=== PATIENT | male | born 1970 | race Caucasian/White ===

== ENCOUNTER → 2021-03-31 15:05 | Outpatient (REF) | payer OTHER, SELFPAY | LOC: HO.SL 15:05 | PROVIDERS: PCP Internal Medicine; Visit Provider Internal Medicine | DX: Z13.89 Encounter for screening for other disorder (principal) ==

== ENCOUNTER 2022-12-23 14:59 | Outpatient (AMB) | payer OTHER, SELFPAY ==
--- NOTE | 2022-12-23 15:04 | A.OFFVIS_ITS ---
Intake Vital Signs 12/23/22 15:05 Height 6 ft Weight 186 lb 1.122 oz BMI 25.2 BP 108/70 Blood Pressure Location Rt brachial Position Sitting Pulse 68 Pulse Source Pulse Oximeter Temp 97.5 F Temp Source Skin Pulse Oximetry (%) 96 Intake Visit Reasons: FM Intake Note: New pt presents today for FM consult. C/o generalized pain. 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 Patient states that he has had fibromyalgia of for many years. Manifestations include low back pain, bilateral thigh pain muscle pain, fatigue, insomnia. He saw 2 different rheumatologists in the past. Patient was tried on different medications for fibromyalgia. Duloxetine caused side effects. Gabapentin initially helped with symptoms of thigh pain, he was switched to Lyrica which was also Achilles partially effective. It is currently on Lyrica 75 mg t.i.d. Patient also has had low back pain for years. Was found to have herniated disc. He received an epidural steroid injection 10 years ago which provided some relief. He was evaluated by Pain Management in the past few years and a steroid injection was offered, patient was not interested. Recently patient was complaining of shortness of breath with going up a few stairs. He was evaluated by Pulmonary, chest x-ray, 2D echo and PFTs were negative. He took testosterone for about a year and have and initially it was helpful for some time then stopped helping. He is no longer on testosterone due to a change in insurance. Patient states that he takes tramadol 3 times a day which provides some relief. Patient has difficulty falling and staying asleep. He had a couple of sleep studies. One study showed possible mild sleep apnea, the follwing study was inconclusive. He is unaware of any family history of autoimmune rheumatic disease. Patient states that he cannot do weightlifting at the gym due to pain. He uses an exercise bike. 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 He works 2 weekends a month. [facility] Medical History Graves disease IBS (irritable bowel syndrome) Hyperlipidemia Low testosterone level in male Annual physical exam Sleep apnea Hypothyroid Lumbar radiculopathy Fibromyalgia Surgical History No pertinent past surgical history Family History Father Hypertension Diabetes Dementia Mother Diabetes Hypertension Social History Household Members: Spouse and Children Housing: House Alcohol intake: current Alcohol intake frequency: holidays/special occasions only Patient Tobacco Use Status: Never used Tobacco e-Cigarette/Vaping Use: Never Used Second Hand Smoke Exposure: No Current occupational status: employed 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 Cognitive needs: No Hearing needs: No Vision needs: Yes Review of Systems Const Reports fatigue and Reports weakness Card Reports dyspnea on exertion Resp Reports dyspnea on exertion Musc Reports back pain, Reports myalgias, Reports arthralgias and Reports radiating pain into limb Neuro Reports weakness Psych Reports abnormal sleep pattern, Reports anxiety and Reports depression Endo Reports fatigue Physical Exam Vital Signs: Last Vital Signs Temp 97.5 F 12/23/22 15:05 Pulse 68 12/23/22 15:05 BP 108/70 12/23/22 15:05 Pulse Ox 96 12/23/22 15:05 BMI result Body Mass Index 25.2 Const General: cooperative, healthy appearing and comfortable Nutritional Appearance: average body habitus Orientation/consciousness: patient oriented x3 Limitations: no limitations HEENT Head: Yes normocephalic and Yes atraumatic Mouth: moist mucous membranes Resp Effort & Inspection: normal respiratory effort and able to speak in complete sentences Skin General skin exam: no rashes or lesions noted Neuro General: patient oriented x3 Extrem Other: No active synovitis Normal nailfold capillaroscopy Few fibromyalgia tender points Results Reviewed Results Reviewed: Labs from 2015 Showed negative GREGORY/SSA/SSB/transglutaminase/HLA B27 Assessment & Plan Assessment & Plan (1) Fibromyalgia: Code(s): M79.7 - Fibromyalgia Plan: This is a 52-year-old male with past medical history of fibromyalgia who presents for consultation. I do not see any signs of autoimmune rheumatic disease upon my evaluation Discussed management of fibromyalgia with patient. Is a noninflammatory, non- autoimmune central afferent processing disorder leading to a diffuse pain syndrome. I suggested that patient try to address his underlying psychiatric issues, anxiety/depression. I suggested evaluation by a psychotherapist and/or a psychiatrist. Try to follow sleep hygiene practices. Discuss CBT for sleep with psychotherapist. Patient would benefit from increased physical activity, either through formal physical therapy or by joining a gym. Advised patient that he should start activity slowly and increase as tolerated. Consider low-impact exercises such as walking, swimming, aqua therapy stretching. Follow-up as needed (2) Lumbar radiculopathy: Code(s): M54.16 - Radiculopathy, lumbar region Plan: History of herniated disc more than 10 years ago. Consider re-evaluation by Pain Management and/or a spine surgeon Plan I spent 46 minutes reviewing patient's chart, evaluating patient, counseling p atient and documenting in the chart Coding Level of Care Code New Pt Level 4 (59220) Diagnoses Fibromyalgia M79.7 Lumbar radiculopathy M54.16
[2022-12-23 15:05] VITALS: BP 108/70; PULSE 68; TEMP 36.4; O2SAT 96; BMI 25.2
== END 2022-12-23 15:46 | disposition home or self-care (01) ==
PROVIDERS: PCP Internal Medicine; Visit Provider Student in an Organized Health Care Education/Training Program
DX: M79.7 Fibromyalgia (principal); M54.16 Radiculopathy, lumbar region
CPT/HCPCS: 99204

== ENCOUNTER → 2022-12-23 14:59 | Outpatient (BNVA) | payer OTHER, SELFPAY | PROVIDERS: PCP Internal Medicine; Visit Provider Student in an Organized Health Care Education/Training Program ==

== ENCOUNTER 2023-01-02 14:10 | Outpatient (AMB) | payer OTHER, SELFPAY ==
[2023-01-02 14:11] VITALS: BP 110/70; PULSE 65; O2SAT 98; BMI 25.1
--- NOTE | 2023-01-02 14:11 | A.OFFPC_ITS ---
Vital Signs 01/02/23 14:11 Height 6 ft Weight 185 lb BMI 25.1 BP 110/70 Blood Pressure Location Lt brachial Position Sitting Pulse 65 Pulse Source Pulse Oximeter Pulse Oximetry (%) 98 Oxygen Delivery Method Room Air Intake Visit Reasons: 6 Month follow up Intake Note: Pt is here today for 6 month Allergies duloxetine [Cymbalta] Adverse Reaction (Unknown, Verified 12/23/22 15:06) drowsiness Medication List - Last Reconciled 01/02/23 by Alexandria Larsen MD fluticasone propionate 110 mcg/actuation (Flovent HFA) 2 puffs inhalation BID levothyroxine 150 mcg PO DAILY meloxicam 15 mg PO DAILY omeprazole 20 mg PO DAILY pregabalin (Lyrica) 75 mg PO Q8H tramadol 50 mg PO Q8H Tobacco use date assessed: 01/02/23 Dental Screening Dental Screen Date: 01/02/23 Did you have a dental visit in the last 12 months?: Yes Did you have a dental problem in the last 6 months where you did not have access to dental care?: No Was dental information given to patient?: Patient has dentist HPI 6 Month follow up HPI Details Pt presents for f/u he complains of persistent fatigue, low energy, diffuse body aches and unrestful sleep. Patient was seen body rheumatology for fibromyalgia and was advised to increase Lyrica to 150 twice a day. Patient's insurance did not cover testosterone gel but he would like to appeal the decision. [facility] Medical History Graves disease IBS (irritable bowel syndrome) Hyperlipidemia Low testosterone level in male Annual physical exam Sleep apnea Hypothyroid Lumbar radiculopathy Fibromyalgia Surgical History No pertinent past surgical history Family History Father Hypertension Diabetes Dementia Mother Diabetes Hypertension Social History Household Members: Spouse and Children Housing: House Alcohol intake: current Alcohol intake frequency: holidays/special occasions only Patient Tobacco Use Status: Never used Tobacco e-Cigarette/Vaping Use: Never Used Second Hand Smoke Exposure: No Current occupational status: employed 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 How often do you have a drink containing alcohol?: Never 3. How often do you have six or more drinks on one occasion?: Never Total Score: 0 KATHARINA-7 AMB Questionnaire KATHARINA-7 Date KATHARINA - 7 assessed: 07/05/22 Source: Developed by Drs. Alejo Harrington, Radha Long, Janusz Reid and colleagues, with an educational jessica from [employer]. Review of Systems Const All systems reviewed & are unremarkable except as noted in HPI and below Reports no additional complaints Eyes Reports no additional complaints ENT Reports no additional complaints Card Reports no additional complaints Resp Reports no additional complaints Reports no additional complaints Physical exam (Primary Care) Vital Signs: Last Vital Signs Pulse 65 01/02/23 14:11 BP 110/70 01/02/23 14:11 Pulse Ox 98 01/02/23 14:11 Oxygen Delivery Method Room Air 01/02/23 14:11 BMI result Body Mass Index 25.1 Tobacco/Smoking Status: Tobacco use Status Tobacco use date assessed 01/02/23 01/02/23 14:15 Patient Tobacco Use Status Never used Tobacco 01/02/23 14:15 e-Cigarette/Vaping Use Never Used 01/02/23 14:15 Thrive Assessment: Date of Thrive Assessment Date Thrive assessed 07/05/22 01/02/23 14:15 Const General: no acute distress HENMT Face and sinus: Yes normal facial exam Throat: Yes posterior oropharynx normal Neck Neck: Yes supple Resp Effort & Inspection: normal respiratory effort Auscultation: clear to auscultation bilaterally Cardio Rhythm: regular rhythm Heart sounds: S1 normal heart sound present and S2 normal heart sound present GI Inspection: Yes normal to inspection Palpation (GI): Soft to palpation Percussion: Yes normal to percussion Assessment and Plan Assessment & Plan (1) Iron deficiency: Comment: Patient could not tolerate oral iron replacement, constipation Code(s): E61.1 - Iron deficiency Plan: Check iron count (2) Hyperlipidemia: Code(s): E78.5 - Hyperlipidemia, unspecified Plan: Continue low-cholesterol diet (3) Fibromyalgia: Code(s): M79.7 - Fibromyalgia Plan: Patient will try high dose of Lyrica and continue tramadol as needed. Follow-up with Rheumatology (4) Hypothyroid: Code(s): E03.9 - Hypothyroidism, unspecified Plan: Check TSH and continue levothyroxine (5) Low testosterone level in male: Code(s): R79.89 - Other specified abnormal findings of blood chemistry Plan: Check testosterone level off replacement. Patient had a 3 3 results of blood levels of testosterone under 300 since 2019. Orders: Orders Testosterone, Free/Total Today E03.9 - Hypothyroidism, unspecified, E61.1 - Iron deficiency, E78.5 - Hyperlipidemia, unspecified, M79.7 - Fibromyalgia PSA,Total (Free>4and<10) Today E03.9 - Hypothyroidism, unspecified, E61.1 - Iron deficiency, E78.5 - Hyperlipidemia, unspecified, M79.7 - Fibromyalgia Complete Blood Count Auto Diff Today E03.9 - Hypothyroidism, unspecified, E61.1 - Iron deficiency, E78.5 - Hyperlipidemia, unspecified, M79.7 - Fibromyalgia TSH reflex Free T4 Today E03.9 - Hypothyroidism, unspecified, E61.1 - Iron deficiency, E78.5 - Hyperlipidemia, unspecified, M79.7 - Fibromyalgia Comprehensive [place]. Panel Fast 6 Months E03.9 - Hypothyroidism, unspecified, E61.1 - Iron deficiency, E78.5 - Hyperlipidemia, unspecified, M79.7 - Fibromyalgia, R79.89 - Other specified abnormal findings of blood chemistry IRON PROFILE 6 Months E03.9 - Hypothyroidism, unspecified, E61.1 - Iron deficiency, E78.5 - Hyperlipidemia, unspecified, M79.7 - Fibromyalgia, R79.89 - Other specified abnormal findings of blood chemistry Testosterone, Free/Total 6 Months E03.9 - Hypothyroidism, unspecified, E61.1 - Iron deficiency, E78.5 - Hyperlipidemia, unspecified, M79.7 - Fibromyalgia, R79.89 - Other specified abnormal findings of blood chemistry IRON PROFILE Today E03.9 - Hypothyroidism, unspecified, E61.1 - Iron deficiency, E78.5 - Hyperlipidemia, unspecified, M79.7 - Fibromyalgia Comprehensive [place]. Panel Today E03.9 - Hypothyroidism, unspecified, E61.1 - Iron deficiency, E78.5 - Hyperlipidemia, unspecified, M79.7 - Fibromyalgia Bioavailable Testosterone Today R7.89 - Other specified abnormal findings of blood chemistry Lipid Panel 6 Months E03.9 - Hypothyroidism, unspecified, E61.1 - Iron deficiency, E78.5 - Hyperlipidemia, unspecified, M79.7 - Fibromyalgia, R7.89 - Other specified abnormal findings of blood chemistry Complete Blood Count Auto Diff 6 Months E03.9 - Hypothyroidism, unspecified, E61.1 - Iron deficiency, E78.5 - Hyperlipidemia, unspecified, M79.7 - Fibromyalgia, R7.89 - Other specified abnormal findings of blood chemistry Bioavailable Testosterone 6 Months E03.9 - Hypothyroidism, unspecified, E61.1 - Iron deficiency, E78.5 - Hyperlipidemia, unspecified, M79.7 - Fibromyalgia, R7. - Other specified abnormal findings of blood chemistry Coding Level of Care Code Est Pt Level 4 (47964) Diagnoses Iron deficiency E61.1 Hyperlipidemia E78.5 Fibromyalgia M79.7 Hypothyroid E03.9 Low testosterone level in male 89
== END 2023-01-02 15:12 | disposition home or self-care (01) ==
PROVIDERS: Visit Provider Internal Medicine
DX: E61.1 Iron deficiency (principal); E78.5 Hyperlipidemia, unspecified; M79.7 Fibromyalgia; E03.9 Hypothyroidism, unspecified; R79.89 Other specified abnormal findings of blood chemistry
CPT/HCPCS: 99214

== ENCOUNTER 2023-01-02 15:00 | Outpatient (REF) | payer OTHER, SELFPAY ==
[2023-01-02 15:57] LABS: MANUAL DIFF FLAG NO
[2023-01-02 16:04] LABS: Basophils Percent Auto 0.4 % (0-2); Eosinophils Absolute Auto 0.1 X10*3/uL (0.0-0.4); Eosinophils Percent Auto 1.1 % (0-4); Hematocrit 45.6 % (42.0-52.0); Hemoglobin 15.4 g/dl (14.0-18.0); Imm Gran Abs Auto 0.03 X10*3/uL (0.00-0.03); Imm Gran Pct Auto 0.3 % (0.0-0.4); Lymphocytes Absolute Auto 2.9 X10*3/uL (1.2-4.9); Lymphocytes Percent Auto 29.3 % (20-40); Mean Corpuscular HGB Conc 33.8 g/dl (31.0-36.0); Mean Corpuscular Hemoglobin 29.7 pg (27.0-33.0); Mean Platelet Volume 9.7 fL (9.4-12.4); Monocytes Absolute Auto 0.5 X10*3/uL (0.1-1.2); Neutrophils Absolute Auto 6.3 x10*3/uL (2.0-8.3); Neutrophils Percent Auto 63.9 % (45-73); Platelet Count 274 X10*3/uL (160-400); Red Blood Count 5.18 X10*6/uL (4.60-5.80); Red Cell Distribution Width 12.7 % (11.0-16.0); White Blood Count 9.8 X10*3/uL (4.8-10.8)
[2023-01-02 17:00] LABS: Alanine Aminotransferase 14 U/L (0-40); Albumin Level 4.6 g/dL (3.5-5.0); Alkaline Phosphatase 70 U/L (39-117); Anion Gap 13 (12-20); Aspartate Amino Transferase 17 U/L (5-37); Bilirubin Total 0.6 mg/dL (0.0-1.0); Blood Urea Nitrogen 19 mg/dL (9-16); Calcium 9.8 mg/dL (8.4-10.2); Carbon Dioxide 25 mmol/L (22-29); Chloride 105 mmol/L (96-108); Estimated Glomerular Filt Rate > 60; Glucose Random 94 mg/dL (60-115); Iron 71 mcg/dL (45-160); Percent Iron Saturation 20 % (15-50); Potassium 3.8 mmol/L (3.3-5.1); Sodium 139 mmol/L (135-145); Total Iron Binding Capacity 353 mcg/dL (228-428); Total Protein 7.8 g/dL (6.5-8.0); Unsaturated Iron Binding 282 ug/dL
[2023-01-02 17:15] LABS: TSH reflex Free T4 1.27 uIU/mL (0.32-4.0)
[2023-01-02 17:16] LABS: PSA,Total (Free>4and<10) 0.97 ng/mL (0.00-4.00)
[2023-01-20 14:34] LABS: Testosterone-Albumin 4.5 g/dL (3.6-5.1); Testosterone-Total 242 ng/dL (250-1100)
== END 2023-01-02 15:01 | disposition home or self-care (01) ==
LOC: HO.HMGCLDS 15:00
PROVIDERS: PCP Internal Medicine; Visit Provider Internal Medicine
DX: Z12.5 Encounter for screening for malignant neoplasm of prostate (principal); E61.1 Iron deficiency; E78.5 Hyperlipidemia, unspecified; M79.7 Fibromyalgia; E03.9 Hypothyroidism, unspecified; R79.89 Other specified abnormal findings of blood chemistry
CPT/HCPCS: 36415; 80053; 83540; 84153; 84402; 84403; 84443; 85025

== ENCOUNTER 2023-01-23 13:48 | Outpatient (REF) | payer OTHER, SELFPAY ==
[2023-01-31 13:03] LABS: Testosterone-Albumin 4.3 g/dL (3.6-5.1); Testosterone-Bioavailable 94.5 ng/dL (110.0-575.0); Testosterone-SHBG 24 nmol/L (10-50); Testosterone-Total 292 ng/dL (250-1100)
== END 2023-01-23 13:49 | disposition home or self-care (01) ==
LOC: HO.HMGCLDS 13:48
PROVIDERS: PCP Internal Medicine; Visit Provider Internal Medicine
DX: R79.89 Other specified abnormal findings of blood chemistry (principal)
CPT/HCPCS: 36415; 84402; 84403

== ENCOUNTER 2023-08-16 13:30 | Outpatient (AMB) | payer OTHER, SELFPAY ==
[2023-08-16 13:55] VITALS: BP 118/66; PULSE 57; O2SAT 98; BMI 24.7
--- NOTE | 2023-08-16 13:55 | A.OFFPC_ITS ---
Vital Signs 08/16/23 13:55 Height 6 ft Weight 182 lb BMI 24.7 BP 118/66 Blood Pressure Location Rt brachial Position Sitting Pulse 57 Pulse Source Pulse Oximeter Pulse Oximetry (%) 98 Oxygen Delivery Method Room Air Intake Visit Reasons: Follow up Intake Note: Pt is here today for a follow up visit. Allergies duloxetine [Cymbalta] Adverse Reaction (Unknown, Verified 08/16/23 13:57) drowsiness Medication List - Last Reconciled 08/16/23 by Alexandria Larsen MD fluticasone propionate 110 mcg/actuation 2 puffs inhalation BID levothyroxine 150 mcg PO DAILY meloxicam 15 mg PO DAILY omeprazole 20 mg PO DAILY pregabalin (Lyrica) 100 mg PO TID testosterone (Testim) 1 tube transdermal QAM tramadol 50 mg PO Q8H Tobacco use date assessed: 08/16/23 Dental Screening Dental Screen Date: 08/16/23 Did you have a dental visit in the last 12 months?: Yes Did you have a dental problem in the last 6 months where you did not have access to dental care?: No Was dental information given to patient?: Patient has dentist HPI Follow up HPI Details Pt presents for f/u hypothyroid, chronic asthma, FM stable on meds. Patient complains of general chronic fatigue body aches lower back pain worse after sitting for a while or bending forward. Patient has been exercising at least 3 times a week. He denies depression. [facility] Medical History Graves disease IBS (irritable bowel syndrome) Hyperlipidemia Low testosterone level in male Annual physical exam Sleep apnea Hypothyroid Lumbar radiculopathy Fibromyalgia Surgical History No pertinent past surgical history Family History Father Hypertension Diabetes Dementia Mother Diabetes Hypertension Social History Household Members: Spouse and Children Housing: House Alcohol intake: current Alcohol intake frequency: holidays/special occasions only Patient Tobacco Use Status: Never used Tobacco e-Cigarette/Vaping Use: Never Used Second Hand Smoke Exposure: No service: No Current occupational status: 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 1. Little interest or pleasure in doing things: several days 2. Feeling down, depressed, or hopeless: several days 3. Trouble falling or staying asleep, or sleeping too much: several days 4. Feeling tired or having little energy: not at all 5. Poor appetite or overeating: not at all 6. Feeling bad about yourself - or that you are a failure or have let yourself or your family down: not at all 7. Trouble concentrating on things, such as reading the newspaper or watching television: several days 8. Moving or speaking so slowly that other people could have noticed. Or the opposite - being so fidgety or restless that you have been moving around a lot more than usual: not at all 9. Thoughts that you would be better off or of hurting yourself in some way: not at all Total score: 4 Depression Screening Interpretation: Negative Depression Screening Done: Yes Source: Developed by Drs. Alejo Harrington, Radha Long, Janusz Reid and colleagues, with an educational jessica from [employer]. Thrive Questionnaire Date Thrive assessed: 08/16/23 I am a: Patient What is your living situation today?: I have a steady place to live Within the past 12 months, did the food you bought not last and you didn't have the money to get more?: Never true Within the past 12 months, did you worry whether your food would run out before you got money to buy more?: Never true Do you have trouble paying for medicines?: No Do you have trouble getting transportation to medical appointments?: No Do you have trouble paying your heating and electricity bill?: No Do you have trouble taking care of your child, family member or friend?: No Do you have trouble with day-to-day activities such as bathing, preparing meals, shopping, managing finances, etc.?: No Are you currently unemployed and looking for a job?: No Are you interested in more education?: No Please select the resources that you would like help with: None THRIVE Score: 0 AUDIT C Alcohol Use Questionnaire (AUDIT-C) 1. How often do you have a drink containing alcohol?: Never 3. How often do you have six or more drinks on one occasion?: Never Total Score: 0 KATHARINA-7 AMB Questionnaire KATHARINA-7 Date KATHARINA - 7 assessed: 08/16/23 Feeling nervous, anxious, or on edge: 0 = Not at all Not being able to stop or control worryin = Not at all Worrying too much about different things: 0 = Not at all Trouble relaxin = Not at all Being so restless that it is hard to sit still: 0 = Not at all Becoming easily annoyed or irritable: 0 = Not at all Feeling afraid as if something awful might happen: 0 = Not at all Total KATHARINA-7 score (0-4 normal; 5-9 mild; 10-14 moderate; 15-21 severe): 0 Source: Developed by Drs. Alejo Harrington, Radha Long, Janusz Reid and colleagues, with an educational jessica from [employer]. Review of Systems Const All systems reviewed & are unremarkable except as noted in HPI and below Reports no additional complaints Eyes Reports no additional complaints ENT Reports no additional complaints Card Reports no additional complaints Resp Reports no additional complaints GI Reports no additional complaints Reports no additional complaints Musc Reports no additional complaints Physical exam (Primary Care) Vital Signs: Last Vital Signs Pulse 57 08/16/23 13:55 BP 118/66 08/16/23 13:55 Pulse Ox 98 08/16/23 13:55 Oxygen Delivery Method Room Air 08/16/23 13:55 BMI result Body Mass Index 24.7 Tobacco/Smoking Status: Tobacco use Status Tobacco use date assessed 08/16/23 08/16/23 13:58 Patient Tobacco Use Status Never used Tobacco 08/16/23 13:58 e-Cigarette/Vaping Use Never Used 08/16/23 13:58 PHQ-9: PHQ-9 Score PHQ-9: Total score 4 08/16/23 14:13 Depression Screening Interpretation: Negative Thrive Assessment: Date of Thrive Assessment Date Thrive assessed 08/16/23 08/16/23 14:13 Const General: no acute distress HENMT Head: Yes normal to inspection Face and sinus: Yes normal facial exam Mouth: Normal oral and palatal mucosa present Eyes General: appearance normal, both eyes and all related structures Neck Neck: Yes no lymphadenopathy and Yes supple Resp Effort & Inspection: normal respiratory effort Auscultation: clear to auscultation bilaterally Cardio Rhythm: regular rhythm Heart sounds: S1 normal heart sound present and S2 normal heart sound present Assessment and Plan Assessment & Plan (1) Hypothyroid: Code(s): E03.9 - Hypothyroidism, unspecified Plan: Continue levothyroxine return for fasting blood work including TSH (2) Annual physical exam: Code(s): Z00.00 - Encounter for general adult medical examination without abnormal findings (3) Low testosterone level in male: Code(s): R79.89 - Other specified abnormal findings of blood chemistry Plan: Continue testosterone replacement check testosterone level on the treatment (4) Fatigue: Code(s): R53.83 - Other fatigue (5) Fibromyalgia: Code(s): M79.7 - Fibromyalgia Plan: Continue current medications (6) Asthma: Code(s): J45.909 - Unspecified asthma, uncomplicated Plan: Continue fluticasone inhaler and follow-up with pulmonology p.r.n. Orders: Orders Comprehensive [place]. Panel Fast Today E03.9 - Hypothyroidism, unspecified, E61.1 - Iron deficiency, E78.5 - Hyperlipidemia, unspecified, Z00.00 - Encounter for general adult medical examination without abnormal findings Lipid Panel Today E03.9 - Hypothyroidism, unspecified, E61.1 - Iron deficiency, E78.5 - Hyperlipidemia, unspecified, Z00.00 - Encounter for general adult medical examination without abnormal findings TSH reflex Free T4 Today E03.9 - Hypothyroidism, unspecified IRON PROFILE Today E03.9 - Hypothyroidism, unspecified, E61.1 - Iron deficiency, E78.5 - Hyperlipidemia, unspecified, Z00.00 - Encounter for general adult medical examination without abnormal findings Complete Blood Count Auto Diff Today E03.9 - Hypothyroidism, unspecified, E61.1 - Iron deficiency, E78.5 - Hyperlipidemia, unspecified, Z00.00 - Encounter for general adult medical examination without abnormal findings Bioavailable Testosterone Today E03.9 - Hypothyroidism, unspecified, E61.1 - Iron deficiency, E78.5 - Hyperlipidemia, unspecified, Z00.00 - Encounter for general adult medical examination without abnormal findings Testosterone, Free/Total Today E03.9 - Hypothyroidism, unspecified, E61.1 - Iron deficiency, E78.5 - Hyperlipidemia, unspecified, Z00.00 - Encounter for general adult medical examination without abnormal findings Medications: Changed From fluticasone propionate 110 mcg/actuation (Flovent HFA) 2 puffs inhalation BID To fluticasone propionate 110 mcg/actuation 2 puffs inhalation BID 12 grams 4RF Refilled testosterone (Testim) 1 tube transdermal QAM 450 grams 3RF R68.82 - Decreased libido Coding Level of Care Code Est Pt Level 4 (50353) Diagnoses Hypothyroid E03.9 Annual physical exam Z00.00 Low testosterone level in male R79.89 Fatigue R53.83 Fibromyalgia M79.7 Asthma J45.909
== END 2023-08-16 15:24 | disposition home or self-care (01) ==
PROVIDERS: PCP Internal Medicine; Visit Provider Internal Medicine
DX: E03.9 Hypothyroidism, unspecified (principal); Z00.00 Encounter for general adult medical examination without abnormal findings; R79.89 Other specified abnormal findings of blood chemistry; R53.83 Other fatigue; M79.7 Fibromyalgia; J45.909 Unspecified asthma, uncomplicated
CPT/HCPCS: 99214

== ENCOUNTER 2024-02-14 14:37 | Outpatient (REF) | payer OTHER, SELFPAY ==
[2024-02-14 16:18] LABS: Appearance Urine Clear; Color Urine Yellow; Glucose Urine UA Negative (Negative); Leukocyte Esterase Urine Negative (Negative); Nitrite Urine Negative (Negative); PH 5.5 (5.0-9.0); Specific Gravity - Urine >= 1.030 (1.005-1.025); Urine Blood Negative (Negative); Urine Ketones Negative (Negative); Urine Protein Negative (Neg-Trace)
[2024-02-14 16:25] LABS: MANUAL DIFF FLAG NO
[2024-02-14 16:31] LABS: Bacteria Urine None Seen (None Seen); Hyaline Casts Urine 0-2 /LPF (0-2); RBC Urine 0-2 /HPF (0-2); Squamous Epithelial Cell Urine 0-2 /HPF (0-2); WBC Urine 0-5 /HPF (0-5)
[2024-02-14 16:35] LABS: Basophils Percent Auto 0.4 % (0-2); Eosinophils Percent Auto 0.5 % (0-4); Hematocrit 43.8 % (42.0-52.0); Imm Gran Abs Auto 0.03 X10*3/uL (0.00-0.03); Imm Gran Pct Auto 0.4 % (0.0-0.4); Lymphocytes Absolute Auto 2.4 X10*3/uL (1.2-4.9); Mean Corpuscular HGB Conc 34.2 g/dl (31.0-36.0); Mean Corpuscular Hemoglobin 30.1 pg (27.0-33.0); Mean Corpuscular Volume 87.8 fL (80.0-98.0); Mean Platelet Volume 9.5 fL (9.4-12.4); Monocytes Absolute Auto 0.5 X10*3/uL (0.1-1.2); Monocytes Percent Auto 6.5 % (2-11); NRBC Pct Auto 0.3 /100WBC (0.0-0.2); Neutrophils Absolute Auto 4.7 x10*3/uL (2.0-8.3); Neutrophils Percent Auto 61.2 % (45-73); Platelet Count 204 X10*3/uL (160-400); Red Blood Count 4.99 X10*6/uL (4.60-5.80); Red Cell Distribution Width 12.7 % (11.0-16.0); White Blood Count 7.6 X10*3/uL (4.8-10.8)
[2024-02-14 17:11] LABS: Alanine Aminotransferase 24 U/L (0-40); Albumin Level 4.5 g/dL (3.5-5.0); Alkaline Phosphatase 64 U/L (39-117); Anion Gap 12 (12-20); Aspartate Amino Transferase 21 U/L (5-37); Bilirubin Total 0.5 mg/dL (0.0-1.0); Blood Urea Nitrogen 24 mg/dL (9-16); Calcium 9.8 mg/dL (8.4-10.2); Carbon Dioxide 29 mmol/L (22-29); Chloride 102 mmol/L (96-108); Cholesterol 241 mg/dL (<200); Estimated Glomerular Filt Rate > 60; Glucose Fasting 80 mg/dL (60-99); HDL Cholesterol 52 mg/dL (>40); Iron 97 mcg/dL (45-160); LDL Cholesterol Calculated 143 mg/dL (<100); Percent Iron Saturation 27 % (15-50); Potassium 3.8 mmol/L (3.3-5.1); Sodium 139 mmol/L (135-145); Total Iron Binding Capacity 356 mcg/dL (228-428); Total Protein 7.5 g/dL (6.5-8.0); Triglycerides 234 mg/dL (<150); Unsaturated Iron Binding 259 ug/dL
[2024-02-14 17:17] LABS: TSH reflex Free T4 2.73 uIU/mL (0.32-4.0); Vitamin D 25-OH Total 36.7 ng/mL (>30)
[2024-02-14 17:18] LABS: PSA,Total (Free>4and<10) 0.74 ng/mL (0.00-4.00)
[2024-02-23 04:33] LABS: Testosterone-Albumin 4.5 g/dL (3.6-5.1); Testosterone-Bioavailable 157.5 ng/dL (110.0-575.0); Testosterone-Free 76.6 pg/mL (46.0-224.0); Testosterone-SHBG 25 nmol/L (10-50); Testosterone-Total 460 ng/dL (250-1100)
== END 2024-02-14 14:38 | disposition home or self-care (01) ==
LOC: HO.HMGCLDS 14:37
PROVIDERS: PCP Internal Medicine; Visit Provider Internal Medicine
DX: Z00.00 Encounter for general adult medical examination without abnormal findings (principal); R79.89 Other specified abnormal findings of blood chemistry; E61.1 Iron deficiency; E78.5 Hyperlipidemia, unspecified; E03.9 Hypothyroidism, unspecified; Z12.5 Encounter for screening for malignant neoplasm of prostate
CPT/HCPCS: 36415; 80053; 80061; 81001; 82306; 83540; 83735; 84153; 84402; 84403; 84443; 85025

== ENCOUNTER 2024-02-26 14:03 | Outpatient (AMB) | payer OTHER, SELFPAY ==
[2024-02-26 14:04] VITALS: BP 110/66; PULSE 72; O2SAT 98; BMI 24.7
--- NOTE | 2024-02-26 14:04 | A.OFFPC_ITS ---
Vital Signs 02/26/24 14:04 Height 6 ft Weight 182 lb BMI 24.7 BP 110/66 Blood Pressure Location Lt brachial Position Sitting Pulse 72 Pulse Source Pulse Oximeter Pulse Oximetry (%) 98 Oxygen Delivery Method Room Air Intake Visit Reasons: Annual PE Over due Intake Note: Pt is here today for PE. Allergies duloxetine [Cymbalta] Adverse Reaction (Unknown, Verified 02/26/24 14:09) drowsiness Tobacco use date assessed: 02/26/24 Dental Screening Dental Screen Date: 08/16/23 HPI Annual PE Over due HPI Details Patient presents for physical PFSH Medical History (Updated 02/26/24 @ 14:46 by Alexandria Larsen MD) Graves disease IBS (irritable bowel syndrome) Hyperlipidemia Low testosterone level in male Annual physical exam Sleep apnea Hypothyroid Lumbar radiculopathy Fibromyalgia Surgical History No pertinent past surgical history Family History Father Hypertension Diabetes Dementia Mother Diabetes Hypertension Social History Household Members: Spouse and Children Housing: House Alcohol intake: current Alcohol intake frequency: holidays/special occasions only Patient Tobacco Use Status: Never used Tobacco e-Cigarette/Vaping Use: Never Used Second Hand Smoke Exposure: No service: No Current occupational status: 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 1. Little interest or pleasure in doing things: more than half the days Source: Developed by Drs. Alejo Harrington, Radha Long, Janusz Reid and colleagues, with an educational jessica from [employer]. Thrive Questionnaire Date Thrive assessed: 08/16/23 I am a: Patient What is your living situation today?: I have a steady place to live Within the past 12 months, did the food you bought not last and you didn't have the money to get more?: I choose not to answer this question Within the past 12 months, did you worry whether your food would run out before you got money to buy more?: I choose not to answer this question Do you have trouble paying for medicines?: No Do you have trouble getting transportation to medical appointments?: No Do you have trouble paying your heating and electricity bill?: No Do you have trouble taking care of your child, family member or friend?: No Do you have trouble with day-to-day activities such as bathing, preparing meals, shopping, managing finances, etc.?: No Are you currently unemployed and looking for a job?: No Are you interested in more education?: No Please select the resources that you would like help with: None Currently or been in a relationship where the following occur: No concerns reported THRIVE Score: 0 AUDIT C Alcohol Use Questionnaire (AUDIT-C) 1. How often do you have a drink containing alcohol?: Monthly or less 2. How many drinks containing alcohol do you have on a typical day when you are drinking?: 1 or 2 3. How often do you have six or more drinks on one occasion?: Never Total Score: 1 KATHARINA-7 AMB Questionnaire KATHARINA-7 Date KATHARINA - 7 assessed: 08/16/23 Feeling nervous, anxious, or on edge: 2 = More than half the days Not being able to stop or control worryin = More than half the days Worrying too much about different things: 2 = More than half the days Trouble relaxin = More than half the days Being so restless that it is hard to sit still: 2 = More than half the days Becoming easily annoyed or irritable: 2 = More than half the days Feeling afraid as if something awful might happen: 2 = More than half the days Total KATHARINA-7 score (0-4 normal; 5-9 mild; 10-14 moderate; 15-21 severe): 14 Source: Developed by Drs. Alejo Harrington, Radha Long, Janusz Reid and colleagues, with an educational jessica from [employer]. Review of Systems Const All systems reviewed & are unremarkable except as noted in HPI and below Eyes Reports no additional complaints ENT Reports no additional complaints Card Reports no additional complaints Resp Reports no additional complaints GI Reports no additional complaints Reports no additional complaints Musc Reports no additional complaints Physical exam (Primary Care) Vital Signs: Last Vital Signs Pulse 72 02/26/24 14:04 BP 110/66 02/26/24 14:04 Pulse Ox 98 02/26/24 14:04 Oxygen Delivery Method Room Air 02/26/24 14:04 BMI result Body Mass Index 24.7 Tobacco/Smoking Status: Tobacco use Status Tobacco use date assessed 02/26/24 02/26/24 14:10 Patient Tobacco Use Status Never used Tobacco 02/26/24 14:04 e-Cigarette/Vaping Use Never Used 02/26/24 14:04 Thrive Assessment: Date of Thrive Assessment Date Thrive assessed 08/16/23 02/26/24 14:04 Currently or been in a relationship where the following occur: No concerns reported Const General: no acute distress HENMT Head: Yes normal to inspection Ears: hearing grossly normal bilaterally Face and sinus: Yes normal facial exam Throat: Yes posterior oropharynx normal Eyes General: appearance normal, both eyes and all related structures Neck Neck: Yes no lymphadenopathy and Yes supple Resp Effort & Inspection: normal respiratory effort Auscultation: clear to auscultation bilaterally Cardio Rhythm: regular rhythm Heart sounds: S1 normal heart sound present and S2 normal heart sound present GI Inspection: Yes normal to inspection Palpation (GI): Soft to palpation Percussion: Yes normal to percussion Auscultation: normal bowel sounds Coding Level of Care Code Est Pt Prev Care 40-64y(06340) Diagnoses Sleep apnea G47.30 Hypothyroid E03.9 Annual physical exam Z00.00 Hyperlipidemia E78.5 Lumbar radiculopathy M54.16 Assessment & Plan Assessment & Plan (1) Sleep apnea: Comment: Patient is established with [facility] sleep medicine Code(s): G47.30 - Sleep apnea, unspecified Category: Medical Plan: Patient would like to follow-up with [facility] sleep medicine. (2) Hypothyroid: Code(s): E03.9 - Hypothyroidism, unspecified Category: Medical Plan: Continue Levothyroxine (3) Annual physical exam: Code(s): Z00.00 - Encounter for general adult medical examination without abnormal findings Category: Medical Plan: Well-balanced diet regular physical activity discussed with the patient, he is up-to-date with colonoscopy (4) Hyperlipidemia: Code(s): E78.5 - Hyperlipidemia, unspecified Category: Medical Plan: Low-cholesterol diet discussed with the patient (5) Lumbar radiculopathy: Comment: On Lyrica and tramadol prn Code(s): M54.16 - Radiculopathy, lumbar region Category: Medical Plan: Continue Lyrica and tramadol as needed Orders: Orders TSH reflex Free T4 1 Year E03.9 - Hypothyroidism, unspecified, E78.5 - Hyperlipidemia, unspecified, G47.30 - Sleep apnea, unspecified, Z00.00 - Encounter for general adult medical examination without abnormal findings Comprehensive [place]. Panel Fast 1 Year E03.9 - Hypothyroidism, unspecified, E78.5 - Hyperlipidemia, unspecified, G47.30 - Sleep apnea, unspecified, Z00.00 - Encounter for general adult medical examination without abnormal findings Lipid Panel 1 Year E03.9 - Hypothyroidism, unspecified, E78.5 - Hyperlipidemia, unspecified, G47.30 - Sleep apnea, unspecified, Z00.00 - Encounter for general adult medical examination without abnormal findings Complete Blood Count Auto Diff 1 Year E03.9 - Hypothyroidism, unspecified, E78.5 - Hyperlipidemia, unspecified, G47.30 - Sleep apnea, unspecified, Z00.00 - Encounter for general adult medical examination without abnormal findings Testosterone, Free/Total 1 Year E03.9 - Hypothyroidism, unspecified, E78.5 - Hyperlipidemia, unspecified, G47.30 - Sleep apnea, unspecified, Z00.00 - Encounter for general adult medical examination without abnormal findings PSA,Total (Free>4and<10) 1 Year E03.9 - Hypothyroidism, unspecified, E78.5 - Hyperlipidemia, unspecified, G47.30 - Sleep apnea, unspecified, Z00.00 - Encounter for general adult medical examination without abnormal findings UA w Microscopic 1 Year E03.9 - Hypothyroidism, unspecified, E78.5 - Hyperlipidemia, unspecified, G47.30 - Sleep apnea, unspecified, Z00.00 - Encounter for general adult medical examination without abnormal findings LDL Cholesterol Direct 1 Year E78.5 - Hyperlipidemia, unspecified Referrals Sleep Medicine Referral G47.30 - Sleep apnea, unspecified Medications: New dicyclomine 10 mg PO BID 180 caps 0RF Refilled testosterone (Testim) 1 tube transdermal QAM 450 grams 3RF R68.82 - Decreased libido Discontinued fluticasone propionate 110 mcg/actuation Discontinued Reason: Doctor's Order 2 puffs inhalation BID 12 grams 4RF
== END 2024-02-26 14:37 | disposition home or self-care (01) ==
PROVIDERS: PCP Internal Medicine; Visit Provider Internal Medicine
DX: G47.30 Sleep apnea, unspecified (principal); E03.9 Hypothyroidism, unspecified; Z00.00 Encounter for general adult medical examination without abnormal findings; E78.5 Hyperlipidemia, unspecified; M54.16 Radiculopathy, lumbar region

== ENCOUNTER 2024-06-13 14:10 | Outpatient (AMB) | payer BC, SELFPAY ==
[2024-06-13 14:14] VITALS: BP 116/74; PULSE 74; RESP 18; O2SAT 98; BMI 24.8
--- NOTE | 2024-06-13 14:14 | A.OFFPC_ITS ---
Vital Signs 06/13/24 14:14 Height 6 ft Weight 183 lb BMI 24.8 BP 116/74 Blood Pressure Location Lt brachial Position Sitting Respiration 18 Pulse 74 Pulse Source Pulse Oximeter Pulse Oximetry (%) 98 Oxygen Delivery Method Room Air Intake Visit Reasons: Lower back pain Intake Note: Pt is here today for sick visit. Pt c/o lower back pain that it going to his L leg. Allergies duloxetine [Cymbalta] Adverse Reaction (Unknown, Verified 06/13/24 14:15) drowsiness Medication List - Last Reconciled 06/13/24 by Alexandria Larsen MD baclofen 20 mg PO BEDTIME dicyclomine 10 mg PO BID levothyroxine 150 mcg PO DAILY meloxicam 15 mg PO DAILY omeprazole 20 mg PO DAILY prednisone 20 mg PO DAILY pregabalin (Lyrica) 100 mg PO TID Qvar RediHaler 40 mcg/actuation (beclomethasone dipropionate) 2 inhalations inhalation BID NS testosterone 1 tube transdermal QAM tramadol 50 mg PO Q8H Tobacco use date assessed: 06/13/24 Dental Screening Dental Screen Date: 06/13/24 Did you have a dental visit in the last 12 months?: Yes Did you have a dental problem in the last 6 months where you did not have access to dental care?: No Was dental information given to patient?: Patient has dentist HPI Lower back pain HPI Details Pt c/o worsening of chronic LBP with radiation to LLE radiation, worse when sitting lying down slightly improve while walking. Patient noticed weakness in the left lower extremity when walking up or down the stairs and tingling and numbness sensation in posterior left leg and foot but denies change in bowel or bladder function or saddle paresthesia. [facility] Medical History (Updated 06/13/24 @ 14:51 by Alexandria Larsen MD) Graves disease IBS (irritable bowel syndrome) Hyperlipidemia Low testosterone level in male Annual physical exam Sleep apnea Hypothyroid Lumbar radiculopathy Fibromyalgia Surgical History No pertinent past surgical history Family History Father Hypertension Diabetes Dementia Mother Diabetes Hypertension Social History Household Members: Spouse and Children Housing: House Alcohol intake: current Alcohol intake frequency: holidays/special occasions only Patient Tobacco Use Status: Never used Tobacco e-Cigarette/Vaping Use: Never Used Second Hand Smoke Exposure: No service: No Current occupational status: 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 1. Little interest or pleasure in doing things: several days 2. Feeling down, depressed, or hopeless: several days 3. Trouble falling or staying asleep, or sleeping too much: several days 4. Feeling tired or having little energy: several days 5. Poor appetite or overeating: several days 6. Feeling bad about yourself - or that you are a failure or have let yourself or your family down: several days 7. Trouble concentrating on things, such as reading the newspaper or watching television: several days 8. Moving or speaking so slowly that other people could have noticed. Or the opp osite - being so fidgety or restless that you have been moving around a lot more than usual: several days 9. Thoughts that you would be better off or of hurting yourself in some way: not at all Total score: 8 Depression Screening Interpretation: Negative Depression Screening Done: Yes 07157 - PHQ-9 Billing: Yes Source: Developed by Drs. Alejo Harrington, Radha Long, Janusz Reid and colleagues, with an educational jessica from [employer]. Thrive Questionnaire Date Thrive assessed: 06/13/24 I am a: Patient What is your living situation today?: I have a steady place to live Within the past 12 months, did the food you bought not last and you didn't have the money to get more?: Never true Within the past 12 months, did you worry whether your food would run out before you got money to buy more?: Never true Do you have trouble paying for medicines?: No Do you have trouble getting transportation to medical appointments?: No Do you have trouble paying your heating and electricity bill?: No Do you have trouble taking care of your child, family member or friend?: No Do you have trouble with day-to-day activities such as bathing, preparing meals, shopping, managing finances, etc.?: No Are you currently unemployed and looking for a job?: No Are you interested in more education?: No Please select the resources that you would like help with: None Currently or been in a relationship where the following occur: I choose not to answer THRIVE Score: 0 AUDIT C Alcohol Use Questionnaire (AUDIT-C) 1. How often do you have a drink containing alcohol?: Never 3. How often do you have six or more drinks on one occasion?: Never Total Score: 0 KATHARINA-7 AMB Questionnaire KATHARINA-7 Date KATHARINA - 7 assessed: 06/13/24 Feeling nervous, anxious, or on edge: 1 = Several days Not being able to stop or control worryin = Several days Worrying too much about different things: 1 = Several days Trouble relaxin = Several days Being so restless that it is hard to sit still: 1 = Several days Becoming easily annoyed or irritable: 1 = Several days Feeling afraid as if something awful might happen: 0 = Not at all Total KATHARINA-7 score (0-4 normal; 5-9 mild; 10-14 moderate; 15-21 severe): 6 Source: Developed by Drs. Alejo Harrington, Radha Long, Janusz Reid and colleagues, with an educational jessica from [employer]. KATHARINA-7 Assessment Billing KATHARINA-7 Assessment Tool: KATHARINA-7 Assessment 11060 Review of Systems Const All systems reviewed & are unremarkable except as noted in HPI and below Eyes Reports no additional complaints ENT Reports no additional complaints Card Reports no additional complaints Resp Reports no additional complaints GI Reports no additional complaints Reports no additional complaints Physical exam (Primary Care) Vital Signs: Last Vital Signs Pulse 74 06/13/24 14:14 Resp 18 06/13/24 14:14 BP 116/74 06/13/24 14:14 Pulse Ox 98 06/13/24 14:14 Oxygen Delivery Method Room Air 06/13/24 14:14 BMI result Body Mass Index 24.8 Tobacco/Smoking Status: Tobacco use Status Tobacco use date assessed 06/13/24 06/13/24 14:18 Patient Tobacco Use Status Never used Tobacco 06/13/24 14:18 e-Cigarette/Vaping Use Never Used 06/13/24 14:14 PHQ-9: PHQ-9 Score PHQ-9: Total score 8 06/13/24 14:18 Depression Screening Interpretation: Negative Thrive Assessment: Date of Thrive Assessment Date Thrive assessed 06/13/24 06/13/24 14:18 Currently or been in a relationship where the following occur: I choose not to answer Const General: no acute distress Resp Effort & Inspection: normal respiratory effort Auscultation: clear to auscultation bilaterally Cardio Rhythm: regular rhythm Heart sounds: S1 normal heart sound present and S2 normal heart sound present Back/Spine/Pelvis Other: Nurse decreased range of motion in lumbar spine paraspinal tenderness left more than right straight leg rising 30 degrees bilaterally motor strength 4/5 left lower extremity proximal and distal and 5/5 right lower extremity, deep tendon reflexes 2+ bilaterally Coding Level of Care Code Est Pt Level 3 (91292) Diagnoses Sciatica M54.30 Additional Codes KATHARINA-7 Assessment Billing - KATHARINA-7 Assessment Tool: KATHARINA-7 Assessment 82989 ([id number]) PHQ-9 - 75681 - PHQ-9 Billing: Yes ([id number]) Assessment & Plan Assessment & Plan (1) Sciatica: Code(s): M54.30 - Sciatica, unspecified side Category: Medical Plan: For acute on chronic sciatica start MRI will be obtained to rule out disc herniation. Prednisone taper and baclofen prescribed patient will continue the rest of his medications and will be referred to neurosurgeon based on his MRI report Orders: Orders MR lumbar spine wo con Today M54.30 - Sciatica, unspecified side Medications: New prednisone 3 tabl QD x 4, then 2 tabl QD x 4, then 1 tabl QD X 4 20 mg PO DAILY 24 tabs 0RF baclofen 20 mg PO BEDTIME 30 tabs 0RF baclofen 20 mg PO BEDTIME 30 tabs 0RF prednisone 3 tabl QD x 4, then 2 tabl QD x 4, then 1 tabl QD X 4 20 mg PO DAILY 24 tabs 0RF
--- OUTSIDE RECORDS SUMMARY | 2024-06-13 18:01 | XMS_ITS ---
Author Name [facility] Organization Unknown Care Team Organization Name Specialty Phone Email Start Date End [facility] 09[facility]03/20[facility]
== END 2024-06-13 15:08 | disposition home or self-care (01) ==
LOC: HO.HMCC 14:11
PROVIDERS: PCP Internal Medicine; Visit Provider Internal Medicine
DX: M54.30 Sciatica, unspecified side (principal)

== ENCOUNTER → 2024-06-13 14:10 | Outpatient (BNVA) | payer BC, SELFPAY | PROVIDERS: PCP Internal Medicine; Visit Provider Internal Medicine | DX: M54.30 Sciatica, unspecified side (principal) | CPT/HCPCS: 96127 ==

== ENCOUNTER 2025-02-26 14:52 | Outpatient (REF) | payer BC, SELFPAY ==
[2025-02-26 16:46] LABS: MANUAL DIFF FLAG NO
[2025-02-26 16:49] LABS: Hematocrit 44.0 % (42.0-52.0); Hemoglobin 15.3 g/dl (14.0-18.0); Imm Gran Abs Auto 0.02 X10*3/uL (0.00-0.03); Imm Gran Pct Auto 0.3 % (0.0-0.4); Lymphocytes Absolute Auto 2.4 X10*3/uL (1.2-4.9); Mean Corpuscular HGB Conc 34.8 g/dl (31.0-36.0); Mean Corpuscular Hemoglobin 29.4 pg (27.0-33.0); Mean Corpuscular Volume 84.6 fL (80.0-98.0); NRBC Abs Auto 0.000 X10*3/uL (0.0-0.012); NRBC Pct Auto 0.0 /100WBC (0.0-0.2); Platelet Count 189 X10*3/uL (160-400); Red Blood Count 5.20 X10*6/uL (4.60-5.80); White Blood Count 5.9 X10*3/uL (4.8-10.8)
[2025-02-26 17:06] LABS: Alanine Aminotransferase 18 U/L (0-40); Albumin Level 4.8 g/dL (3.5-5.0); Alkaline Phosphatase 60 U/L (39-117); Anion Gap 10 (12-20); Aspartate Amino Transferase 30 U/L (5-37); Blood Urea Nitrogen 20 mg/dL (9-16); Calcium 9.1 mg/dL (8.4-10.2); Carbon Dioxide 26 mmol/L (22-29); Chloride 106 mmol/L (96-108); Cholesterol 189 mg/dL (<200); Estimated Glomerular Filt Rate > 60; HDL Cholesterol 47 mg/dL (>40); Potassium 3.9 mmol/L (3.3-5.1); Sodium 138 mmol/L (135-145); Total Protein 7.1 g/dL (6.5-8.0); Triglycerides 141 mg/dL (<150)
[2025-02-26 17:18] LABS: PSA,Total (Free>4and<10) 0.66 ng/mL (0.00-4.00)
[2025-02-26 17:56] LABS: Free T4 (Free Thyroxine) 1.17 ng/dL (0.71-1.85)
[2025-03-03 14:53] LABS: Testosterone, Free 91.1 pg/mL (35.0-155.0)
== END 2025-02-26 14:53 | disposition home or self-care (01) ==
LOC: HO.HMGCLDS 14:52
PROVIDERS: PCP Internal Medicine; Visit Provider Internal Medicine
DX: Z00.00 Encounter for general adult medical examination without abnormal findings (principal); Z12.5 Encounter for screening for malignant neoplasm of prostate; E03.9 Hypothyroidism, unspecified; E78.5 Hyperlipidemia, unspecified; G47.30 Sleep apnea, unspecified
CPT/HCPCS: 36415; 80053; 80061; 83721; 84153; 84402; 84403; 84439; 84443; 85025

== ENCOUNTER 2025-03-03 13:13 | Outpatient (AMB) | payer BC, SELFPAY ==
--- NOTE | 2025-03-03 13:18 | MHC.PC.OV ---
Vital Signs 03/03/25 13:19 Height 6 ft Weight 183 lb BMI 24.8 BP 108/66 Blood Pressure Location Rt brachial Position Sitting Respiration 16 Pulse 72 Pulse Source Pulse Oximeter Pulse Oximetry (%) 97 Oxygen Delivery Method Room Air Intake Visit Reasons: Annual PE Intake Note: Pt is here today for PE. Pt states that he needs a refill on Tramadol. Allergies duloxetine (Cymbalta) Adverse Reaction (Unknown, Verified 03/03/25 13:47) drowsiness Medication List - Last Reconciled 03/03/25 by Alexandria Larsen MD dicyclomine 10 mg PO BID levothyroxine 150 mcg PO DAILY meloxicam 15 mg PO DAILY omeprazole 20 mg PO DAILY pregabalin (Lyrica) 100 mg PO TID Qvar RediHaler 40 mcg/actuation (beclomethasone dipropionate) 2 inhalations inhalation BID NS testosterone 1 tube transdermal QAM tizanidine 2 mg PO TID tramadol 50 mg PO Q8H zolpidem (Ambien) 5 mg PO BEDTIME PRN Tobacco use date assessed: 06/13/24 Dental Screening Dental Screen Date: 06/13/24 HPI Annual PE HPI Details Pt presents for PE. Patient reports general large muscle group in 4 extremities tenderness and weakness getting progressively worse over last few months. He has been working out in the gym and noticed not able to lift heavy weights as he did before. Patient denies any problem with the balance, change in the vision, change in the bladder or bowel function. [facility] Medical History (Updated 03/03/25 @ 15:51 by Alexandria Larsen MD) Graves disease IBS (irritable bowel syndrome) Hyperlipidemia Low testosterone level in male Annual physical exam Sleep apnea Hypothyroid Lumbar radiculopathy Fibromyalgia Surgical History (Updated 03/03/25 @ 14:12 by Alexandria Larsen MD) Hx of colonoscopy No pertinent past surgical history Family History Father Hypertension Diabetes Dementia Mother Diabetes Hypertension Social History Household Members: Spouse and Children Housing: House Alcohol intake: current Alcohol intake frequency: holidays/special occasions only Patient Tobacco Use Status: Never used Tobacco e-Cigarette/Vaping Use: Never Used Second Hand Smoke Exposure: No service: No Current occupational status: employed 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 Cognitive needs: No Hearing needs: No Vision needs: Yes Questionnaire Thrive Questionnaire Date Thrive assessed: 06/11/24 I am a: Patient What is your living situation today?: I have a steady place to live Within the past 12 months, did the food you bought not last and you didn't have the money to get more?: Never true Within the past 12 months, did you worry whether your food would run out before you got money to buy more?: Never true Do you have trouble paying for medicines?: No Do you have trouble getting transportation to medical appointments?: No Do you have trouble paying your heating and electricity bill?: No Do you have trouble taking care of your child, family member or friend?: No Do you have trouble with day-to-day activities such as bathing, preparing meals, shopping, managing finances, etc.?: No Are you currently unemployed and looking for a job?: No Are you interested in more education?: No Please select the resources that you would like help with: None Currently or been in a relationship where the following occur: I choose not to answer THRIVE Score: 0 AUDIT C Alcohol Use Questionnaire (AUDIT-C) 1. How often do you have a drink containing alcohol?: Never 3. How often do you have six or more drinks on one occasion?: Never Total Score: 0 KATHARINA-7 AMB Questionnaire KATHARINA-7 Date KATHARINA - 7 assessed: 06/13/24 Source: Developed by Drs. Alejo Harrington, Radha Long, Jansuz Reid and colleagues, with an educational jessica from [employer]. Review of Systems Const All systems reviewed & are unremarkable except as noted in HPI and below Eyes Reports no additional complaints ENT Reports no additional complaints Card Reports no additional complaints Resp Reports no additional complaints GI Reports no additional complaints Reports no additional complaints Physical exam (Primary Care) Vital Signs: Last Vital Signs Pulse 72 03/03/25 13:19 Resp 16 03/03/25 13:19 BP 108/66 03/03/25 13:19 Pulse Ox 97 03/03/25 13:19 Oxygen Delivery Method Room Air 03/03/25 13:19 BMI result Body Mass Index 24.8 Tobacco/Smoking Status: Tobacco use Status Tobacco use date assessed 06/13/24 03/03/25 13:20 Patient Tobacco Use Status Never used Tobacco 03/03/25 13:20 e-Cigarette/Vaping Use Never Used 03/03/25 13:20 Thrive Assessment: Date of Thrive Assessment Date Thrive assessed 06/11/24 03/03/25 13:20 Currently or been in a relationship where the following occur: I choose not to answer Const General: no acute distress HENMT Head: Yes normal to inspection Face and sinus: Yes normal facial exam Mouth: Normal oral and palatal mucosa present Throat: Yes posterior oropharynx normal Eyes General: appearance normal, both eyes and all related structures Neck Neck: Yes no lymphadenopathy and Yes supple Resp Effort & Inspection: normal respiratory effort Auscultation: clear to auscultation bilaterally Cardio Rhythm: regular rhythm Heart sounds: S1 normal heart sound present and S2 normal heart sound present GI Inspection: Yes normal to inspection Palpation (GI): Soft to palpation Percussion: Yes normal to percussion Auscultation: normal bowel sounds Neuro General: deep tendon reflexes 2+ bilaterally Cranial nerves: Yes CN's II-XII intact bilaterally Gait exam (Neuro): Normal gait present Motor exam (neuro): 5/5 motor strength present throughout Coding Level of Care Code Est Pt Prev Care 40-64y(87373) Diagnoses Muscle weakness M62.81 Claudication I73.9 Hypothyroid E03.9 Low testosterone level in male R79.89 Assessment & Plan Assessment & Plan (1) Muscle weakness: Code(s): M62.81 - Muscle weakness (generalized) Category: Medical Plan: check CPK and acetylocholine binding antibody, patient was recommended to see Neurology (2) Claudication: Code(s): I73.9 - Peripheral vascular disease, unspecified Category: Medical Plan: Follow extremity pain after walking short distance we will obtain arterial Doppler to rule out peripheral artery disease (3) Hypothyroid: Code(s): E03.9 - Hypothyroidism, unspecified Category: Medical Plan: Increase levothyroxine to 175 mcg and recheck TSH in 2 months (4) Low testosterone level in male: Code(s): R79.89 - Other specified abnormal findings of blood chemistry Category: Medical Plan: Continue testosterone replacement therapy check the level follow-up in 6 months with fasting labs before Orders: Orders Comprehensive [place]. Panel Fast 6 Months E03.9 - Hypothyroidism, unspecified, E78.5 - Hyperlipidemia, unspecified, I73.9 - Peripheral vascular disease, unspecified Complete Blood Count Auto Diff 6 Months E03.9 - Hypothyroidism, unspecified, E78.5 - Hyperlipidemia, unspecified, I73.9 - Peripheral vascular disease, unspecified Lipid Panel 6 Months E03.9 - Hypothyroidism, unspecified, E78.5 - Hyperlipidemia, unspecified, I73.9 - Peripheral vascular disease, unspecified Testosterone, Free/Total 6 Months E03.9 - Hypothyroidism, unspecified, E78.5 - Hyperlipidemia, unspecified, I73.9 - Peripheral vascular disease, unspecified Acetylcholine Receptor Binding Today M62.81 - Muscle weakness (generalized) Creatine Kinase Total Today M62.81 - Muscle weakness (generalized) US arterial duplex LE BI Today E03.9 - Hypothyroidism, unspecified, I73.9 - Peripheral vascular disease, unspecified TSH reflex Free T4 Today E03.9 - Hypothyroidism, unspecified Triiodothyronine T3 Free Today E03.9 - Hypothyroidism, unspecified TSH reflex Free T4 6 Months E03.9 - Hypothyroidism, unspecified, E78.5 - Hyperlipidemia, unspecified, I73.9 - Peripheral vascular disease, unspecified Triiodothyronine T3 Free 6 Months E03.9 - Hypothyroidism, unspecified, E78.5 - Hyperlipidemia, unspecified, I73.9 - Peripheral vascular disease, unspecified Medications: New levothyroxine (Levoxyl) 175 mcg PO DAILY 90 tabs 3RF Discontinued levothyroxine Discontinued Reason: Doctor's Order 150 mcg PO DAILY 90 tabs 3RF
[2025-03-03 13:19] VITALS: BP 108/66; PULSE 72; RESP 16; O2SAT 97; BMI 24.8
--- OUTSIDE RECORDS SUMMARY | 2025-03-03 16:52 | XMS_ITS | Clinical Summary ---
Author Organization [facility] Address [address] [place] [address] Phone Care Team Providers Care [employer] Former Name Role Phone Unavailable Primary Care Provider Unavailabl e Social History Tobacco Use Types Packs/Day Years Used Date Smoking Tobacco: Never Smokeless Tobacco: Never Alcohol Use Standard Drinks/Week Comments Yes 0 (1 standard drink = 0.6 oz pur e alcohol) Sex and Gender Information Value Date Recorded Sex Assigned at Not on file Legal Sex Male 9:06 PM EST Gender Identity Not on file Sexual Orientation Not on file Obstetrics History Plan of Treatment Health Maintenance Due Date Last Done Comments Colorectal Cancer Screening: Colonoscopy 1971 DTaP,Tdap,and Td Vaccines (1 - Tdap) 1990 Hepatitis B Vaccines (1 of 3 - 19+ 3-dose series) 1990 Pneumococcal Vaccine: 50+ Years (1 of 1 - PCV) 2021 Zoster Vaccines (1 of 2) 2021 Cholesterol Screening (Lipid Panel) 03/16/2022 HIV Screening 03/16/2022 Hepatitis C Screening 03/16/2022 Social Influencers of Health Screening 03/16/2022 Depression Screening 04/03/2024 COVID-19 Vaccine ( season) 2024 02/04/2022, 12/30/2020, 04/10/2020, Additional history exists Influenza Vaccine (#1) 2024 , 01/06/2023, 01/13/2021, Additional history exists RSV Immunization Adult Patients (1 - 1-dose 75+ series) 2046 HIB Vaccines Aged Out No longer eligi ble based on patient's age to complete this topic HPV Vaccines Aged Out No longer eligi ble based on patient's age to complete this topic Hepatitis A Vaccines Aged Out No long er eligible based on patient's age to complete this topic IPV Vaccines Aged Out No longer eligi ble based on patient's age to complete this topic MMR Vaccines Aged Out No longer eligi ble based on patient's age to complete this topic Meningococcal ACWY Vaccine Aged Out N o longer eligible based on patient's age to complete this topic Meningococcal B Vaccine Aged Out No l onger eligible based on patient's age to complete this topic RSV Immunization Patients Under 20 months Aged Out No longer eligible based on patient's age to complete this topic Varicella Vaccines Aged Out No longer eligible based on patient's age to complete this topic
--- OUTSIDE RECORDS SUMMARY | 2025-03-03 16:52 | XMS_ITS ---
Author Name [facility] Organization Unknown Care Team Organization Name Specialty Phone Email Start Date End [facility] 09/03/2022 [facility] NULL Primary Care 02/08/2022 11[facility]20[facility]
== END 2025-03-03 15:54 | disposition home or self-care (01) ==
LOC: HO.HMCC 13:14
PROVIDERS: PCP Internal Medicine; Visit Provider Internal Medicine
DX: Z00.00 Encounter for general adult medical examination without abnormal findings (principal); M62.81 Muscle weakness (generalized); I73.9 Peripheral vascular disease, unspecified; E03.9 Hypothyroidism, unspecified

== ENCOUNTER 2025-03-03 13:13 | Outpatient (REF) | payer BC, SELFPAY ==
[2025-03-03 16:14] LABS: Appearance Urine Clear; Glucose Urine UA Negative (Negative); PH 7.5 (5.0-9.0); Specific Gravity - Urine 1.015 (1.005-1.025)
== END 2025-03-03 13:14 | disposition home or self-care (01) ==
LOC: HO.HMGCLDS 13:13
PROVIDERS: PCP Internal Medicine; Visit Provider Internal Medicine
DX: Z00.00 Encounter for general adult medical examination without abnormal findings (principal); M62.81 Muscle weakness (generalized); E78.5 Hyperlipidemia, unspecified; E03.9 Hypothyroidism, unspecified; R68.82 Decreased libido; G47.30 Sleep apnea, unspecified
CPT/HCPCS: 36415; 81001; 82550; 84443; 84481; 86041